=== PATIENT | female | born 1960 | race Caucasian/White ===

== ENCOUNTER 2023-07-29 08:08 | Emergency (ER) | payer OTHER ==
[~2023-07-29] VITALS: Ht 165.1 cm; Wt 65.0 kg
[2023-07-29 08:10] VITALS: O2SAT 98
[2023-07-29] MEDS: SODIUM CHLORIDE 0.9% 1,000 ML IV ONE (08:46)
[2023-07-29 08:48] LABS: BASOPHILS % 0.4 % (0.0-2.0); EOSINOPHILS % 0.9 % (0.0-5.0); HEMOGLOBIN. 13.3 g/dL (12.0-16.0); LYMPHOCYTES % 17.4 % (20.0-50.0); MEAN CORPUSCULAR HEMOGLOBIN 29.5 pg (28.0-32.0); MEAN CORPUSCULAR HGB CONC 34.1 g/dL (31.0-37.0); MEAN CORPUSCULAR VOLUME 86.4 fL (81.0-99.0); MONOCYTES % 10.5 % (2.0-8.0); NEUTROPHILS % 70.8 % (40.0-76.0); PLATELET 282 x1000/uL (130-400); RED BLOOD CELL COUNT 4.51 mill/uL (4.2-5.4); RED CELL DISTRIBUTION WIDTH 12.5 % (11.6-14.6); WHITE BLOOD COUNT 5.7 x1000/uL (4.5-11.0)
[2023-07-29 08:51] LABS: CHLORIDE 106 mEq/L (98-107); POTASSIUM 3.2 mEq/L (3.5-5.1); SODIUM 140 mEq/L (136-145)
[2023-07-29 08:52] LABS: CALCIUM 10.1 mg/dL (8.7-10.4); CARBON DIOXIDE 26 mEq/L (21-32)
[2023-07-29 08:57] LABS: CREATININE 0.9 mg/dL (0.6-1.0); GLUCOSE 121 mg/dL (70-105); UREA NITROGEN BLOOD 15 mg/dL (9-23)
[2023-07-29 09:06] LABS: TROPONIN I HIGH SENSITIVITY < 4 ng/L (3.0-34)
[2023-07-29 10:04] VITALS: BP 146/80; PULSE 100; RESP 16; TEMP 98
== END 2023-07-29 10:27 | disposition home or self-care (01) ==
LOC: ER 08:08
DX: R53.1 Weakness (principal); I10 Essential (primary) hypertension
CPT/HCPCS: 99285; 71045; 80048; 83880; 85025; 84484; 36415; 93005; J7030